=== PATIENT | female | born 1980 | race Caucasian/White ===

== ENCOUNTER 2021-08-04 10:10 | Emergency (ER) | payer BC, OTHER ==
[~2021-08-04] VITALS: Ht 160 cm; Wt 77.1 kg
[~2021-08-04 10:10] MED LIST: FRS325T PO; IBP600T1 PO; OXYC-12 PO; PREN1TAB39 PO
[2021-08-04] MEDS ORDERED: LACTATED RINGERS 1,000 ML IV SCH (10:30)
[2021-08-04] MEDS ORDERED: ONDANSETRON 4 MG/2 ML (SDV) Z0FRAN IVP ONE (10:30)
[2021-08-04] MEDS ORDERED: fentaNYL INJ 100 MCG/2 ML AMP IVP ONE (10:45)
--- NOTE | 2021-08-04 10:48 | ED Abdominal Pain ---
General Chief Complaint: Abdominal/GI Problems Stated Complaint: N/V Nursing Triage Note: PT AMBULATE TO ROOM WITH C/O N/V X4 DAYS. PT STATES THAT "I KNOW IT'S MY GALLBLADDER". PT REPORTS THAT SHE WAS TOLD THAT GALLBLADDER NEEDED REMOVED IN MAY AND THAT INSURANCE WOULD NOT COVER THE SURGERY. PT STATES THAT SHE DOES NOT HAVE A PCP NOW AND THAT [facility] COULD NOT GET HER IN FOR AN APPT FOR 3-4 MONTHS. Source of Information: Patient Exam Limitations: No Limitations (NATHAN MEJIA APRN) History of Present Illness Date Seen by Provider: Aug 04, 2021 Time Seen by Provider: 10:46 Initial Comments To ER with nausea vomiting for 4 days. She states that she has a known gallbladder issue but could not get it removed at [facility] because of insurance issues. She has had no fevers but has had abdominal pain nausea vomiting and diarrhea. with whom she lives has no symptoms. Timing/Duration: 3-4 Days Severity/Quality: Moderate Location: Generalized Abdomen Radiation: No Radiation Activities at Onset: None Associated Symptoms: Nausea/Vomiting (NATHAN MEJIA APRN) Allergies and Home Medications Allergies Coded Allergies: No Known Drug Allergies (Verified , 08/22/07) Patient Home Medication List Home Medication List Reviewed: Yes (NATHAN MEIJA APRN) Docusate Sodium (Colace) 100 Mg Capsule, 100 MG PO BID Prescribed by: YAS ARZOLA on 08/05/21 0854 Ferrous Sulfate (Iron) 325 Mg Tablet, 1 TAB PO BID, (Reported) Entered as Reported by: BEA PETERS on 06/09/12 1601 Ibuprofen (Motrin) 600 Mg Tab, 600 MG PO Q6H PRN, (Reported) Entered as Reported by: BEA PETERS on 06/09/12 1559 Ondansetron (Ondansetron Odt) 8 Mg Tab.rapdis, 8 MG PO Q6H PRN for NAUSEA/VOMITING Prescribed by: NATHAN MEJIA on 08/04/21 1215 Oxycodone HCl/Acetaminophen (Oxycodone-Acetaminophen 5-325) 1 Each Tablet, 1 EACH PO Q4H PRN for PAIN-MODERATE Prescribed by: YAS ARZOLA on 08/05/21 0854 Oxycodone Hcl/Acetaminophen (Percocet 5-325 Mg Tablet) 1 Each Tablet, 1-2 EACH PO Q4-6 hrs PRN, (Reported) Entered as Reported by: BEA PETERS on 06/09/12 1600 Vits W-Ca,Fe,Fa(<1MG) () 1 Each Tablet, 1 EACH PO DAILY, (Rep orted) Entered as Reported by: EVA BRYAN on 03/25/12 1134 Review of Systems Review of Systems Constitutional: see HPI EENTM: No Symptoms Reported Respiratory: No Symptoms Reported Cardiovascular: No Symptoms Reported Gastrointestinal: See HPI, Abdominal Pain, Diarrhea, Nausea, Vomiting Genitourinary: No Symptoms Reported Musculoskeletal: no symptoms reported Skin: no symptoms reported Psychiatric/Neurological: No Symptoms Reported Endocrine: No Symptoms Reported Hematologic/Lymphatic: No Symptoms Reported (NATHAN MEJIA APRN) Past Dmcidlg-Quknbs-Wkmlzc Hx Patient Social History Tobacco Use?: Yes Tobacco type used: Cigarettes Smoking Status: Current Everyday Smoker Smokeless Tobacco Frequency: Never a User Substance use?: No Alcohol Use?: No Pt feels they are or have been: No (NATHAN MEJIA APRN) Past Medical History Reproductive Disorders: No (NATHAN MEJIA APRN) Physical Exam Vital Signs Vital Signs - First Documented 08/04/21 08/04/21 10:31 12:59 Temp 36.3 Pulse 91 Resp 18 B/P (MAP) 127/68 (87) Pulse Ox 99 O2 Delivery Room Air (ROBERT DHILLON MD) Vital Signs Capillary Refill : Less Than 3 Seconds (NATHAN MEJIA APRN) Height/Weight/BMI Height: '" Weight: lbs. oz. kg; 30.00 BMI Method: General Appearance: WD/WN, no apparent distress HEENT: PERRL/EOMI, normal ENT inspection Neck: non-tender, full range of motion Respiratory: normal breath sounds, no respiratory distress, no accessory muscle use Gastrointestinal: normal bowel sounds, soft Extremities: normal range of motion, non-tender Neurologic/Psychiatric: alert, normal mood/affect, oriented x 3 Skin: normal color, warm/dry (NATHAN MEJIA APRN) Progress/Results/Core Measures Results/Orders Lab Results Laboratory Tests Test 08/04/21 11:01 08/04/21 12:18 Range/Units White Blood Count 9.5 4.3-11.0 10^3/uL Red Blood Count 4.55 3.80-5.11 10^6/uL Hemoglobin 14.5 11.5-16.0 g/dL Hematocrit 43 35-52 % Mean Corpuscular Volume 95 80-99 fL Mean Corpuscular Hemoglobin 32 25-34 pg Mean Corpuscular Hemoglobin Concent 34 32-36 g/dL Red Cell Distribution Width 13.0 10.0-14.5 % Platelet Count 315 130-400 10^3/uL Mean Platelet Volume 9.1 9.0-12.2 fL Immature Granulocyte % (Auto) 0 % Neutrophils (%) (Auto) 51 42-75 % Lymphocytes (%) (Auto) 37 12-44 % Monocytes (%) (Auto) 12 0-12 % Eosinophils (%) (Auto) 0 0-10 % Basophils (%) (Auto) 0 0-10 % Neutrophils # (Auto) 4.8 1.8-7.8 10^3/uL Lymphocytes # (Auto) 3.5 1.0-4.0 10^3/uL Monocytes # (Auto) 1.1 H 0.0-1.0 10^3/uL Eosinophils # (Auto) 0.0 0.0-0.3 10^3/uL Basophils # (Auto) 0.0 0.0-0.1 10^3/uL Immature Granulocyte # (Auto) 0.0 0.0-0.1 10^3/uL Sodium Level 137 135-145 MMOL/L Potassium Level 3.1 L 3.6-5.0 MMOL/L Chloride Level 98 98-107 MMOL/L Carbon Dioxide Level 28 21-32 MMOL/L Anion Gap 11 5-14 MMOL/L Blood Urea Nitrogen 13 7-18 MG/DL Creatinine 0.74 0.60-1.30 MG/DL Estimat Glomerular Filtration Rate 87 BUN/Creatinine Ratio 18 Glucose Level 94 70-105 MG/DL Calcium Level 9.4 8.5-10.1 MG/DL Corrected Calcium 9.1 8.5-10.1 MG/DL Total Bilirubin 1.2 H 0.1-1.0 MG/DL Aspartate Amino Transf (AST/SGOT) 15 5-34 U/L Alanine Aminotransferase (ALT/SGPT) 22 0-55 U/L Alkaline Phosphatase 47 40-136 U/L Total Protein 7.9 6.4-8.2 GM/DL Albumin 4.4 3.2-4.5 GM/DL Lipase 33 8-78 U/L Serum Test, Qualitative NEGATIVE NEGATIVE Urine Color ORANGE Urine Clarity CLOUDY Urine pH 6.0 5-9 Urine Specific [place] 1.025 H 1.016-1.022 Urine Protein TRACE H NEGATIVE Urine Glucose (UA) NEGATIVE NEGATIVE Urine Ketones 1+ H NEGATIVE Urine Nitrite NEGATIVE NEGATIVE Urine Bilirubin 1+ H NEGATIVE Urine Urobilinogen 1.0 < = 1.0 MG/DL Urine Leukocyte Esterase NEGATIVE NEGATIVE Urine RBC (Auto) NEGATIVE NEGATIVE Urine RBC NONE /HPF Urine WBC RARE /HPF Urine Squamous Epithelial Cells 5-10 /HPF Urine Crystals NONE /LPF Urine Bacteria MODERATE H /HPF Urine Casts NONE /LPF Urine Mucus MODERATE H /LPF Urine Culture Indicated NO (ROBERT DHILLON MD) Vital Signs/I&O 08/04/21 08/04/21 10:31 12:59 Temp 36.3 Pulse 91 Resp 18 10 B/P (MAP) 127/68 (87) 126/79 Pulse Ox 99 O2 Delivery Room Air (ROBERT DHILLON MD) Blood Pressure Mean: 87 Departure Communication (Admissions) 12:00-I spoke with Dr. Arzola, we will discharged home and he will do a lap desire in the morning outpatient NAME: AAMIR REMY [facility] REC#: [id number] PT STATUS: REG ER : 1980 PHYSICIAN: NATHAN MEJIA APRN ADMIT DATE: 08/04/21/ER Draft Date of Exam:08/04/21 US GALLBLADDER [id number] PROCEDURE: US Gallbladder. TECHNIQUE: Multiple real-time grayscale images were obtained over the right upper quadrant in various projections. INDICATION: Abdominal pain. COMPARISON: There are no prior studies available for comparison. FINDINGS: There are at least two sizable gallstones within the gallbladder. The gallbladder wall is not thickened nor is the common bile duct dilated. The liver does not appear to be enlarged. There is no focal mass involving the liver, and the biliary tree is not abnormally dilated. Spectral and color-flow imaging of the portal vein shows the vein is patent. The right kidney, the aorta, and the inferior vena cava are unremarkable. The pancreatic head and body are unremarkable, but the tail is obscured by bowel gas. There is no mass or free fluid collection noted. IMPRESSION: 1. There is cholelithiasis, but there is no evidence for acute cholecystitis. 2. If clinical concern regarding an acute abnormally of the gallbladder exists and further imaging is desired, then a nuclear medicine hepatobiliary scan would be recommended. Dictated on workstation # [id number] Dict: 08/04/21 1148 Trans: 08/04/21 1153 [id number] Interpreted by: MATT GLOVER MD Electronically signed by: (NATHAN MEJIA APRN) Impression Primary Impression: Symptomatic cholelithiasis Disposition: HOME, SELF-CARE Condition: Stable Departure-Patient Inst. Decision time for Depature: 11:51 (NATHAN MEJIA APRN) Referrals: NO,LOCAL PHYSICIAN (PCP/Family) Primary Care Physician Patient Instructions: No Instuctions Given, Gallstones Add. Discharge Instructions: Be at the outpatient surgery department on the side of the hospital tomorrow morning between 6 and 6:30 AM. Do not eat anything after midnight tonight. All discharge instructions reviewed with patient and/or family. Voiced understanding. Scripts Ondansetron (Ondansetron Odt) 8 Mg Tab.rapdis 8 MG PO Q6H PRN for NAUSEA/VOMITING, #10 TAB Prov: NATHAN MEJIA APRN 08/04/21 Work/School Note: Work Release Form Date Seen in the Emergency Department: Aug 04, 2021 Return to Work: Aug 08, 2021 ATTENDING PHYSICIAN NOTE: I was physically present as attending physician in the emergency department d uring the care of this patient, but I was not directly involved in the decision making or delivery of care for this patient. (ROBERT DHILLON MD) Copy Copies To 1: YAS ARZOLA DO NATHAN MEJIA APRN Aug 04, 2021 10:48 ROBERT DHILLON MD Aug 09, 2021 10:01
[2021-08-04 11:04] LABS: BASOPHILS % (AUTO) 0 % (0-10); EOSINOPHILS % (AUTO) 0 % (0-10); HEMATOCRIT 43 % (35-52); HEMOGLOBIN 14.5 g/dL (11.5-16.0); LYMPHOCYTES # (AUTO) 3.5 10^3/uL (1.0-4.0); LYMPHOCYTES % (AUTO) 37 % (12-44); MEAN CORPUSCULAR HEMOGLOBIN 32 pg (25-34); MEAN CORPUSCULAR HGB CONC 34 g/dL (32-36); MEAN CORPUSCULAR VOLUME 95 fL (80-99); MEAN PLATELET VOLUME 9.1 fL (9.0-12.2); MONOCYTES # (AUTO) 1.1 10^3/uL (0.0-1.0); MONOCYTES % (AUTO) 12 % (0-12); NEUTROPHILS # (AUTO) 4.8 10^3/uL (1.8-7.8); NEUTROPHILS % (AUTO) 51 % (42-75); PLATELET COUNT 315 10^3/uL (130-400); WHITE BLOOD COUNT 9.5 10^3/uL (4.3-11.0)
[2021-08-04 11:20] LABS: ALBUMIN 4.4 GM/DL (3.2-4.5); POTASSIUM 3.1 MMOL/L (3.6-5.0)
[2021-08-04 11:21] LABS: CALCIUM 9.4 MG/DL (8.5-10.1)
[2021-08-04 11:22] LABS: TOTAL PROTEIN 7.9 GM/DL (6.4-8.2)
[2021-08-04 11:24] LABS: BILIRUBIN,TOTAL 1.2 MG/DL (0.1-1.0)
[2021-08-04 11:26] LABS: CREATININE SERUM 0.74 MG/DL (0.60-1.30)
--- NOTE | 2021-08-04 11:54 | Diagnostic Imaging Report ---
PROCEDURE: US Gallbladder. TECHNIQUE: Multiple real-time grayscale images were obtained over the right upper quadrant in various projections. INDICATION: Abdominal pain. COMPARISON: There are no prior studies available for comparison. FINDINGS: There are at least two sizable gallstones within the gallbladder. The gallbladder wall is not thickened nor is the common bile duct dilated. The liver does not appear to be enlarged. There is no focal mass involving the liver, and the biliary tree is not abnormally dilated. Spectral and color-flow imaging of the portal vein shows the vein is patent. The right kidney, the aorta, and the inferior vena cava are unremarkable. The pancreatic head and body are unremarkable, but the tail is obscured by bowel gas. There is no mass or free fluid collection noted. IMPRESSION: 1. There is cholelithiasis, but there is no evidence for acute cholecystitis. 2. If clinical concern regarding an acute abnormally of the gallbladder exists and further imaging is desired, then a nuclear medicine hepatobiliary scan would be recommended. Dictated by: Dictated on workstation # [id number]
[2021-08-04] MEDS ORDERED: ONDA8TAB13 PO (12:15)
[2021-08-04] MEDS ORDERED: OXYC1TAB11 PO (12:15)
[2021-08-04 12:31] LABS: CLARITY,URINE CLOUDY; COLOR,URINE ORANGE; GLUCOSE, URINE (UA) NEGATIVE (NEGATIVE); KETONES,URINE 1+ (NEGATIVE); LEUKOCYTE ESTERASE ,URINE NEGATIVE (NEGATIVE); NITRITE,URINE NEGATIVE (NEGATIVE); PROTEIN,URINE TRACE (NEGATIVE)
--- NOTE | 2021-08-04 12:41 | History & Physical-Surgical ---
GILSON RÍOS Dani 08/04/21 1241: History of Present Illness History of Present Illness Reason for visit/HPI CC: Abdominal pain with N/V HPI: Ms. Soto is a 41 year old female with no significant past medical history. She reports right-sided abdominal pain that began on the when she woke up. She reports the pain as being mostly in her RUQ with radiation to her back. She says the pain feels like a "vice ager tender" going around her side. She says the pain has been continuous and progressively worse since it began on the . She endorses associated nausea and vomiting. She also reports GERD with repeated burping and epigastric pain. She has not been able to keep a meal down since the . She is able to tolerate water slightly. She says that OTC nausea medicine has not helped. Nothing makes the pain any worse; she denies any symptom worsening with different foods. She says that her pain is most severe in the mornings and evenings. She rates her pain as a 9/10 at its worst but it is currently a 6/10 due to the Zofran and pain medicine she was given in the ED. Patient reports that she has had episodes like this happen twice within the last year but she did not have insurance at the time and was not able to have surgery. Date of Admission Date Seen by a Provider: Aug 04, 2021 Time Seen by a Provider: 12:00 I consulted on this patient on 08/04/21 12:35 Attending Physician Admitting Physician No,Local Physician Consult Allergies and Home Medications Allergies Coded Allergies: No Known Drug Allergies (Verified Allergy, Unknown, 08/22/07) Patient Home Medication List Ferrous Sulfate (Iron) 325 Mg Tablet, 1 TAB PO BID, (Reported) Entered as Reported by: BEA PETERS on 06/09/12 1601 Ibuprofen (Motrin) 600 Mg Tab, 600 MG PO Q6H PRN, (Reported) Entered as Reported by: BEA PETERS on 06/09/12 1559 Ondansetron (Ondansetron Odt) 8 Mg Tab.rapdis, 8 MG PO Q6H PRN for NAUSEA/VOMITING Prescribed by: NATHAN RENDON on 08/04/21 1215 Oxycodone HCl/Acetaminophen (Oxycodone-Acetaminophen 5-325) 1 Each Tablet, 1 EACH PO Q4H PRN for PAIN-MODERATE Prescribed by: NATHAN RENDON on 08/04/21 1222 Oxycodone Hcl/Acetaminophen (Percocet 5-325 Mg Tablet) 1 Each Tablet, 1-2 EACH PO Q4-6 hrs PRN, (Reported) Entered as Reported by: BEA PETERS on 06/09/12 1600 Vits W-Ca,Fe,Fa(<1MG) () 1 Each Tablet, 1 EACH PO DAILY, (Repor amada) Entered as Reported by: EVA BRYAN on 03/25/12 1134 Past Mhspwkl-Tbnfvo-Hrdhdl Hx Patient Social History Marrital Status: Tobacco Use?: Yes Tobacco type used: Cigarettes Smoking Status: Current Everyday Smoker (0.5 PPD for 13 years) Smokeless Tobacco Frequency: Never a User Substance use?: No Alcohol Use?: No Pt feels they are or have been: No Immunizations Up To Date Date of Influenza Vaccine: May 24, 2012 Current Status status: No status: No Advance Directives: No Communicates: Verbally Primary Language: [place]er Preferred Spoken Language: [place]er Is interpretation needed?: No Sensory deficits: Vision impairment Implanted or Applied Medical D: None Past Medical History Surgeries: Appendectomy (Sep or Sep 2019), Section, Tubal Ligation (2020) Family Medical History Cancer (Reports multiple cancers in grandparents on both sides) Patient denies any history of any medical conditions in her mother, father, siblings, or kids. Review of Systems Constitutional: chills; No fever Respiratory: cough (Smoker's cough); No dyspnea on exertion Cardiovascular: No chest pain, No palpitations Gastrointestinal: abdominal pain (RUQ radiating to back with RLQ pain as well), heartburn, loss of appetite, nausea, vomiting, other (Epigastric pain) Musculoskeletal: back pain (Right side), muscle pain Psychiatric/Neurological: Denies Numbness, Denies Weakness Physical Exam Vital Signs Vital Signs - First Documented 08/04/21 10:31 Temp 36.3 Pulse 91 Resp 18 B/P (MAP) 127/68 (87) Capillary Refill : Less Than 3 Seconds Height, Weight, BMI Height: '" Weight: lbs. oz. kg; 30.00 BMI Method: General Appearance: No Apparent Distress, WD/WN HEENT: PERRL/EOMI; No Scleral Icterus (L), No Scleral Icterus (R) Neck: Normal Inspection, Non Tender; No Lymphadenopathy (L), No Lymphadenopathy (R) Respiratory: Chest Non Tender, Lungs Clear, Normal Breath Sounds, No Accessory Muscle Use, No Respiratory Distress Cardiovascular: Regular Rate, Rhythm, No Edema, No Murmur, Normal Peripheral Pulses Gastrointestinal: Soft, Abnormal Bowel Sounds (Decreased); No Distended; Tenderness (RUQ and RLQ), Other (Positive Kruger sign) Back: No CVA Tenderness (L); CVA Tenderness (R) Extremity: Normal Capillary Refill, Normal Inspection, No Calf Tenderness, No Pedal Edema Neurologic/Psychiatric: Alert, Oriented x3, No Motor/Sensory Deficits, Normal 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/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, 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 Norm as Tested Skin: Normal Color, Warm/Dry Lymphatic: No Adenopathy (Head and neck) Data Review Labs Laboratory Tests 08/04/21 11:01: White Blood Count 9.5, Red Blood Count 4.55, Hemoglobin 14.5, Hematocrit 43, Mean Corpuscular Volume 95, Mean Corpuscular Hemoglobin 32, Mean Corpuscular Hemoglobin Concent 34, Red Cell Distribution Width 13.0, Platelet Count 315, Mean Platelet Volume 9.1, Immature Granulocyte % (Auto) 0, Neutrophils (%) (Auto) 51, Lymphocytes (%) (Auto) 37, Monocytes (%) (Auto) 12, Eosinophils (%) (Auto) 0, Basophils (%) (Auto) 0, Neutrophils # (Auto) 4.8, Lymphocytes # (Auto) 3.5, Monocytes # (Auto) 1.1H, Eosinophils # (Auto) 0.0, Basophils # (Auto) 0.0, Immature Granulocyte # (Auto) 0.0, Sodium Level 137, Potassium Level 3.1L, Chloride Level 98, Carbon Dioxide Level 28, Anion Gap 11, Blood Urea Nitrogen 13, Creatinine 0.74, Estimat Glomerular Filtration Rate 87, BUN/Creatinine Ratio 18, Glucose Level 94, Calcium Level 9.4, Corrected Calcium 9.1, Total Bilirubin 1.2H, Aspartate Amino Transf (AST/SGOT) 15, Alanine Aminotransferase (ALT/SGPT) 22, Alkaline Phosphatase 47, Total Protein 7.9, Albumin 4.4, Lipase 33, Serum Test, Qualitative NEGATIVE 08/04/21 12:18: Assessment/Plan Assessment/Plan Admission Diagonsis Assessment: Abdominal pain r/o acute cholecystitis - Positive Kruger - RUQ pain radiating to back - Associate N/V - h/o appendectomy Cholelithiasis - Confirmed on U/S - U/S did not show signs of acute cholecystitis Plan: Continue fluids, Zofran, and pain medicine as needed. Consider HIDA scan to assess for biliary dyskinesia. Possible CT to r/o acute cholecystitis. Possible surgical intervention warranted. YAS ARZOLA DO 08/04/211943: History of Present Illness History of Present Illness Reason for visit/HPI Counts requested by Nathan Rendon for abdominal pain nausea and vomiting cholelithiasis. Patient with abdominal pain in the right upper quadrant that she has had on for about 1 year. Patient states that for the past 4 days she has been having discomfort again. By prescription type is around the right side to her back. Patient has been having nausea and vomiting. Food down. Food makes her pain worse. She states that nothing was seems to make things better. She states her pain is a 9 out of 10 at its worst. Currently is better under control in the emergency department. Patient had a gallbladder ultrasound demonstrating cholelithiasis no evidence of acute cholecystitis. She currently denies any fever sweats chills shortness of breath or chest pain Allergies and Home Medications Allergies Coded Allergies: No Known Drug Allergies (Verified Allergy, Unknown, 08/22/07) Patient Home Medication List Home Medication List Reviewed: Yes Ferrous Sulfate (Iron) 325 Mg Tablet, 1 TAB PO BID, (Reported) Entered as Reported by: BEA PETERS on 06/09/12 1601 Ibuprofen (Motrin) 600 Mg Tab, 600 MG PO Q6H PRN, (Reported) Entered as Reported by: BEA PETERS on 06/09/12 1559 Ondansetron (Ondansetron Odt) 8 Mg Tab.rapdis, 8 MG PO Q6H PRN for NAUSEA/VOMITING Prescribed by: NATHAN RENDON on 08/04/21 1215 Oxycodone HCl/Acetaminophen (Oxycodone-Acetaminophen 5-325) 1 Each Tablet, 1 EACH PO Q4H PRN for PAIN-MODERATE Prescribed by: NATHAN RENDON on 08/04/21 1222 Oxycodone Hcl/Acetaminophen (Percocet 5-325 Mg Tablet) 1 Each Tablet, 1-2 EACH PO Q4-6 hrs PRN, (Reported) Entered as Reported by: BEA PETERS on 06/09/12 1600 Vits W-Ca,Fe,Fa(<1MG) () 1 Each Tablet, 1 EACH PO DAILY, (Reported) Entered as Reported by: EVASTACEY BRYAN on 03/25/12 1134 Past Tsoajxk-Rrrwlp-Exruht Hx Past Medical History Surgeries: Appendectomy (Sep or Sep 2019), Section, Tubal Ligation (2020) Family Medical History Reviewed Nursing Family Hx No Pertinent Family Hx Review of Systems Constitutional: No chills, No fever Respiratory: cough (Smoker's cough); No dyspnea on exertion Cardiovascular: No chest pain, No palpitations Gastrointestinal: abdominal pain (RUQ radiating to back with RLQ pain as well), heartburn, loss of appetite, nausea, vomiting, other (Epigastric pain) Musculoskeletal: back pain (Right side), muscle pain Skin: No change in color, No change in hair/nails Psychiatric/Neurological: Denies Anxiety, Denies Depressed, Denies Emotional Problems, Denies Numbness, Denies Weakness All Other Systems Reviewed Negative Unless Noted: Yes (Negative excepted noted.) Physical Exam General Appearance: No Apparent Distress, WD/WN HEENT: PERRL/EOMI, Normal ENT Inspection Neck: Normal Inspection, Non Tender Respiratory: Chest Non Tender, No Accessory Muscle Use, No Respiratory Distress Cardiovascular: Regular Rate, Rhythm, No JVD Gastrointestinal: Soft; No Distended; Tenderness (RUQ ), Other (Positive Kruger sign) Rectal: Deferred Back: Normal Inspection, No CVA Tenderness Extremity: Normal Capillary Refill, Normal Inspection Neurologic/Psychiatric: Alert, Oriented x3, No Motor/Sensory Deficits, Normal 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 Patient to be n.p.o. after midnight. We discussed risk and benefits of laparoscopic cholecystectomy with intraoperative cholangiogram all other indicated procedures. Patient understands all risk and benefits and wishes to proceed. Patient scheduled for tomorrow. Admission Status: Other (Same Day Surgery) Assessment/Plan Right upper quadrant abdominal pain Symptomatic cholelithiasis Nausea and vomiting Patient symptoms under control at this time and she will be discharged from the emergency department. Patient to be n.p.o. after midnight. We discussed risk and benefits of laparoscopic cholecystectomy with intraoperative cholangiogram all other indicated procedures. Patient understands all risk and benefits and wishes to proceed. Patient scheduled for tomorrow Supervisory-Addendum Brief Verification & Attestation Participated in pt care: history, MDM, physical Personally performed: exam, history, MDM, supervision of care Care discussed with: Medical Student Procedures: n/a Results interpretation: Verified all documentation Verification and Attestation of Medical Student E/M Service A medical student performed and documented this service in my presence. I reviewed and verified all information documented by the medical student and made modifications to such information, when appropriate. I personally performed the physical exam and medical decision making. Yas Arzola, Aug 04, 2021,19:45 GILSON RÍOS Aug 04, 2021 12:41 YAS ARZOLA DO Aug 04, 2021 19:44
[2021-08-04 12:42] LABS: BACTERIA,URINE MODERATE /HPF; BILIRUBIN,URINE 1+ (NEGATIVE); WBC,URINE RARE /HPF
[2021-08-04] MEDS ORDERED: PROMETHAZINE INJ 25 MG/ML (PHENERGAN) AMP IVP ONE (12:45)
[2021-08-04 12:59] VITALS: BP 126/79
[2021-08-05] MEDS ORDERED: DOCU-143 PO (08:54)
[2021-08-05] MEDS ORDERED: OXYC1TAB11 PO (08:54)
== END 2021-08-04 13:00 | disposition home or self-care (01) ==
LOC: EDUNIT# 10:10 → ER 10:12
DX: K80.20 Calculus of gallbladder without cholecystitis without obstruction (principal); F17.210 Nicotine dependence, cigarettes, uncomplicated
CPT/HCPCS: 36415; 76705; 80053; 81000; 83690; 84703; 85025

== ENCOUNTER 2021-08-04 13:04 | Outpatient (CLI) | payer BC ==
[~2021-08-04 13:04] MED LIST changes: +ONDA8TAB13 PO; +OXYC1TAB11 PO
[2021-08-05] MEDS ORDERED: DOCU-143 PO (08:54)
[2021-08-05] MEDS ORDERED: OXYC1TAB11 PO (08:54)
== END 2021-08-04 17:11 | disposition home or self-care (01) ==
LOC: PREOP 13:04
PROVIDERS: ATTEND Surgery
DX: Z01.818 Encounter for other preprocedural examination (principal)

== ENCOUNTER 2021-08-05 06:17 | Day surgery (SDC) | payer BC ==
[2021-08-05] VITALS (10 sets, daily range): BP systolic 85–145; BP diastolic 63–108
[~2021-08-05] VITALS: Ht 160 cm; Wt 77.1 kg
[2021-08-05] MEDS ORDERED: ceFAZolin 2 GM IV Premixed 50 ML IV ONE (06:45)
[2021-08-05] MEDS ORDERED: ONDANSETRON 4 MG/2 ML (SDV) Z0FRAN ONE (07:11)
[2021-08-05] MEDS ORDERED: fentaNYL INJ 100 MCG/2 ML AMP ONE (07:11)
[2021-08-05] MEDS ORDERED: SEVOFLURANE (ULTANE) 15 ML INHAL SOLN ONE ×2 (07:11→08:07)
[2021-08-05] MEDS ORDERED: LIDOCAINE PF 2% 5 ML (XYLOCAINE) VIAL ONE (07:11)
[2021-08-05] MEDS ORDERED: ROCURONIUM 10 MG/ML 5 ML SYRINGE IV ONE ×2 (07:11→08:07)
[2021-08-05] MEDS ORDERED: MIDAZOLAM 2 MG/2 ML (VERSED) VIAL ONE (07:11)
[2021-08-05] MEDS ORDERED: proPOfol 200 MG/20 ML (DIPRIVAN) VIAL IV ONE (07:11)
[2021-08-05] MEDS ORDERED: LIDOCAINE/EPI 1%-1:200,000 (XYLOCAINE) 30 ML VIAL ONE (07:21)
[2021-08-05] MEDS: LACTATED RINGERS 1,000 ML IV PRN ×3 (07:25→09:14)
--- NOTE | 2021-08-05 07:41 | Progress Note-Pre Operative ---
Pre-Operative Progress Note H&P Reviewed The H&P was reviewed, patient examined and no changes noted. Date Seen by Provider: Aug 05, 2021 Time Seen by Provider: 07:41 Date H&P Reviewed: Aug 05, 2021 Time H&P Reviewed: 07:41 Pre-Operative Diagnosis: ruq abd pain, symptomatic cholelithiasis YAS ARZOLA DO Aug 05, 2021 07:41
[2021-08-05] MEDS ORDERED: MEPERIDINE (DEMEROL) INJ 50 MG/ML IVP ONE (07:45)
[2021-08-05] MEDS ORDERED: morphine INJ 10 MG/ML 1ML (SYR OR VIAL) IVP ONE (07:45)
[2021-08-05] MEDS ORDERED: fentaNYL INJ 100 MCG/2 ML AMP IVP ONE (07:45)
[2021-08-05] MEDS ORDERED: morphine INJ 10 MG/ML 1ML (SYR OR VIAL) ONE (08:30)
[2021-08-05] MEDS ORDERED: GLYCOPYRROLATE 0.2 MG/ML (ROBINUL) 2 ML VIAL ONE (08:45)
[2021-08-05] MEDS ORDERED: NEOSTIGMINE 3 MG/3 ML VIAL ONE (08:45)
--- NOTE | 2021-08-05 08:50 | Progress Note-Post Operative ---
Post-Operative Progess Note Surgeon (s)/X Ray Technologist (s) Surgeon YAS ARZOLA DO X Ray Technologist: Dr. Burns to assist in retraction dissection and closure. Pre-Operative Diagnosis ruq abd pain, symptomatic cholelithiasis Post-Operative Diagnosis same Procedure & Operative Findings Date of Procedure 08/05/21 Procedure Performed/Findings PROCEDURE: Laparoscopic cholecystectomy with intraoperative cholangiogram. COMPLICATIONS: None. PROCEDURE: The patient was taken to the operating suite and was prepped and draped in sterile fashion. A surgical pause was performed. Just superior to the umbilicus, a 12 mm incision was made. Dissection was taken down to the fascia, which was then scored and grasped with a Les and the abdomen was then entered. A 0 Vicryl suture was placed in a [id number] fashion and a Wright trocar was placed and secured. Pneumoperitoneum was achieved. A 5mm trochar place in the subxyphoid and 2 in the right upper quadrant. The gallbladder was then grasped and elevated. The cystic duct, and cystic artery were then dissected out. Clip was placed on the distal portion of the cystic duct which was then partially transected. An arrow catheter was inserted into the duct. The cholangiogram was then performed. No filing defects and contrast made its way into the duodenum. Catheter removed. Clips were placed on proximal portion of the cystic duct and then the duct was then transected. Clips were placed along the proximal and distal portion of the cystic artery which was then transected. Hook cautery was used to dissect the gallbladder from the gallbladder fossa achieving hemostasis. The gallbladder was placed in an Endobag and removed through the 12 mm trocar site. The abdomen was then reinspected. Copious amounts of irrigation were used to irrigate the abdomen and there were no signs of active bleeding. Hemostasis had been achieved. The 12 mm fascial defect was then closed with 0 Vicryl suture that had been placed in a [id number] fashion. The abdomen was then desufflated, the trocars were removed. The abdomen was then washed and dried. The skin was then closed using 4-0 Monocryl in a subcuticular fashion. The abdomen was washed and dried and Skin Affix was place over incisions. Patient tolerated the procedure well without any complications and was taken to the recovery room in stable condition. Anesthesia Type general Estimated Blood Loss Estimated blood loss (mL): minimal Specimens/Packing Specimens Removed gallbladder YAS ARZOLA DO Aug 05, 2021 08:50
[2021-08-05] MEDS ORDERED: OXYC1TAB11 PO (08:54)
[2021-08-05] MEDS ORDERED: DOCU-143 PO (08:54)
--- NOTE | 2021-08-05 08:55 | Discharge Inst-Simple/Standard ---
Discharge Inst-Standard Discharge Medications New, Converted or Re-Newed RX: Transmitted to Pharmacy Patient Instructions/Follow Up Plan of Care/Instructions/FU: 2 weeks Jaz Activity as Tolerated: No Discharge Diet: Regular Diet Other Inst to Patient Follow up Appt: Make appointment for 2 weeks. Instructions: No lifting greater than 10 pounds. No strenuous activity. May shower in 24 hours, no tub bath or soaking. Use incentive spirometer at home as directed. No Smoking Skin/Wound Care: You have special glue over incision, it will fall off on it's own. Symptoms to Report: Appetite Changes, Extremity Discoloration, Numbness/Tingling, Swelling Increased, Bleeding Excessive, Eyesight Changes, Pain Increased, Urine Color Change, Constipation(Persistent), Fever over 101 degree F, Pain/Pressure in chest, Urinating Difficulty, Cough Up/Vomit Blood, Heart Beat Irreg/Pounding, Pain/Pressure in jaw, Vaginal Bleeding Increase, Cramps in feet or legs, Lightheadedness, Pain/Pressure in shoulder, Diarrhea(Persistent), Memory Changes Suddenly, Questions/Concerns, Weight gain consecutive days, Dizziness/Fainting, Nausea/Vomiting, Shortness of Breath, Weight gain over 2 pounds. If eyes or skin turn yellow notify physician. If questions or concerns contact your physician Or seek help at emergency department. YAS ARZOLA DO Aug 05, 2021 08:55
--- NOTE | 2021-08-05 09:02 | Anesthesia-General Post-Op ---
General Patient Condition Mental Status/LOC: Same as Preop Cardiovascular: Satisfactory Nausea/Vomiting: Absent Respiratory: Satisfactory Pain: Controlled Complications: Absent Post Op Complications Complications None Follow Up Care/Instructions Patient Instructions None needed. Anesthesia/Patient Condition Patient Condition Patient is doing well, no complaints, stable vital signs, no apparent adverse anesthesia problems. No complications reported per nursing. FABIAN PATEL CRNA Aug 05, 2021 09:02
[2021-08-05] MEDS: ONDANSETRON 4 MG/2 ML (SDV) Z0FRAN IVP PRN ×2 (09:09→09:48)
[2021-08-05] MEDS ORDERED: PROMETHAZINE INJ 25 MG/ML (PHENERGAN) AMP ONE (10:07)
[2021-08-05] MEDS ORDERED: PROMETHAZINE INJ 25 MG/ML (PHENERGAN) AMP IVP ONE (10:15)
--- NOTE | 2021-08-05 10:40 | Diagnostic Imaging Report ---
EXAMINATION: Fluoroscopy up to 1 hour at 8:35 AM. INDICATION: Abdominal pain. 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 7 seconds of fluoroscopy time was utilized. 34 spot films of the right upper quadrant were obtained. FINDINGS: There has been opacification of the common bile duct via a cystic duct catheter. The common bile duct does not appear to be dilated and there is no defect within the duct to suggest a retained calculi is. Contrast is seen extending into the small bowel. IMPRESSION: Fluoroscopic assistance was provided for Dr. Sebastian. Dictated by: Dictated on workstation # [id number]
[2021-08-05] MEDS ORDERED: oxyCODONE/APAP 5/325MG (PERCOCET 5) TABLET PO ONE (10:45)
== END 2021-08-05 12:00 | disposition home or self-care (01) ==
LOC: SDC 06:17
PROVIDERS: ATTEND Surgery
DX: K80.10 Calculus of gallbladder with chronic cholecystitis without obstruction (principal); K21.9 Gastro-esophageal reflux disease without esophagitis; F17.210 Nicotine dependence, cigarettes, uncomplicated; Z79.891 Long term (current) use of opiate analgesic; Z79.899 Other long term (current) drug therapy; Z90.89 Acquired absence of other organs; Z98.51 Tubal ligation status; Z80.9 Family history of malignant neoplasm, unspecified
CPT/HCPCS: 76000; 84703; 87081; 88304